=== PATIENT | female | born 1965 | race Caucasian/White ===

== ENCOUNTER 2020-09-12 15:06 | Outpatient (CLI) | payer MEDICARE, SELFPAY ==
[2020-09-12 15:29] LABS: Basophils Absolute Auto 0.05 K/mm3 (0.00-0.10); Basophils Percent Auto 0.6 % (0.0-1.0); Eosinophils Absolute Auto 0.19 K/mm3 (0.02-0.50); Eosinophils Percent Auto 2.4 % (1.0-6.0); Hematocrit 39.2 % (35.0-49.0); Hemoglobin 13.5 g/dL (12.0-15.0); Immature Granulocyte Absolute 0.01 K/mm3 (0.00-0.00); Immature Granulocyte Percent A 0.1 % (0.0-0.0); Lymphocytes Absolute Auto 4.09 K/mm3 (1.10-4.50); Lymphocytes Percent Auto 50.7 % (18.0-42.0); Mean Corpuscular HGB Conc 34.4 g/dL (32.0-36.0); Mean Corpuscular Hemoglobin 31.8 pg (27.0-31.0); Mean Corpuscular Volume 92.5 fL (78.0-102.0); Mean Platelet Volume 9.5 fl (9.2-11.8); Monocytes Absolute Auto 0.66 K/mm3 (0.10-0.90); Monocytes Percent Auto 8.2 % (2.0-11.0); Neutrophils Absolute Auto 3.1 K/mm3 (1.7-7.2); Platelet Count Result 301 K/mm3 (150-420); Red Blood Count 4.24 M/mm3 (4.20-5.40); Red Cell Distribution Width 12.6 % (11.6-14.4); White Blood Count 8.1 K/mm3 (4.8-10.8)
[2020-09-12 17:09] LABS: Alanine Aminotransferase 28 U/L (14-59); Albumin Level 3.9 g/dL (3.4-5.0); Alkaline Phosphatase 95 U/L (46-116); Anion Gap 10 mmol/L (8-16); Aspartate Amino Transferase 16 U/L (15-37); Bilirubin,Total 0.6 mg/dL (0.00-1.00); Blood Urea Nitrogen 12 mg/dL (7-18); Calcium 9.3 mg/dL (8.5-10.1); Carbon Dioxide 26 mmol/L (21-32); Chloride 99 mmol/L (98-108); Cholesterol 248 mg/dL (0-200); Estimated Glomerular Filt Rate > 60; Glucose 77 mg/dL (70-99); HDL Direct 61 mg/dL (40-60); LDL Cholesterol Calculated 164 mg/dL (<130); Osmolality Calculated 278 mOsm/kg (285-295); Potassium 4.3 mmol/L (3.5-5.1); Sodium 135 mmol/L (136-145); Total Protein 7.1 g/dL (6.4-8.2); Triglycerides 117 mg/dL (0-150)
[2020-09-12 17:10] LABS: Thyroid Stimulating Hormone Reflex 0.72 u/IU/mL (0.36-3.74)
== END 2020-09-12 15:07 | disposition home or self-care (01) ==
LOC: CHSLAB 15:09
PROVIDERS: PCP Family Medicine; Visit Provider Family Medicine
DX: E03.9 Hypothyroidism, unspecified (principal); E78.00 Pure hypercholesterolemia, unspecified
CPT/HCPCS: 36415; 80053; 80061; 84443; 85025

== ENCOUNTER 2020-10-20 20:36 | Emergency (ER) | payer MEDICARE, SELFPAY ==
--- NOTE | ~2020-10-20 | XR_ITS ---
EXAMINATION: XR knee RT 2V EXAM DATE: 10/20/2020 21:01 INDICATION: Right knee injury. TECHNIQUE: Frontal and lateral projections of the right knee. There is no prior study for compariso n. FINDINGS: There are no acute right knee fractures or dislocations identified. There is no subcutaneo us gas. There is soft tissue swelling anterior to the patellar tendon. There is no joint effusion. There are no radiopaque foreign bodies. IMPRESSION: 1. XR knee RT 2V exam without acute osseous findings. 2. Soft tissue swelling. Reviewed, dictated and finalized at location G.
[2020-10-20 20:48] VITALS: BP 140/82; PULSE 88; RESP 20; TEMP 36.7; O2SAT 99
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
[2020-10-20] MEDS: cefTRIAXone 1 GM VIAL IM (21:02)
[2020-10-20] MEDS: TETANUS,DIPHTHERIA,AC PERTUSSIS ADULT 0.5 ML (ADACEL) IM (21:02)
[2020-10-20 21:23] VITALS: BP 138/80; PULSE 85; RESP 20; TEMP 36.7; O2SAT 100
== END 2020-10-20 21:27 | disposition home or self-care (01) ==
PROVIDERS: Emergency Provider Emergency Medicine; PCP Family Medicine
DX: L03.115 Cellulitis of right lower limb (principal); S83.91XA Sprain of unspecified site of right knee, initial encounter; W19.XXXA Unspecified fall, initial encounter
CPT/HCPCS: 73140; 73560; 90471; 90715; 96372; 99283; J0696

== ENCOUNTER 2022-05-09 10:24 | Emergency (ER) | payer MEDICARE, SELFPAY ==
[2022-05-09] VITALS (17 sets, daily range): BP systolic 103–152; BP diastolic 78–109; PULSE 87–111; RESP 20; TEMP 36.6–36.9; O2SAT 96–99
--- NOTE | ~2022-05-09 | CT_ITS ---
EXAMINATION: CT brain wo con DATE: 05/09/2022 11:21 INDICATION: Syncope. TECHNIQUE: Computed tomography (CT) of the head was performed without intravenous contrast. The mA wa s adjusted according to patient size. Iterative reconstruction technique was employed. The dose-lengt h product was 605.33 mGy-cm. COMPARISON: None FINDINGS: There is no intracranial hemorrhage, acute infarction, or abnormal intracranial mass lesion . There are scattered areas of low attenuation in the cerebral white matter. The ventricles are constantino l in size the orbits are normal. There is mild mucosal thickening in left maxillary sinus. The mastoi d air cells are normal. . IMPRESSION: 1. Mild nonspecific cerebral white matter disease, which likely represents chronic small vessel ische john disease. Reviewed, dictated and finalized at location A. RANCE VERIFIER IMPRESSION: 1. Mild nonspecific cerebral white matter disease, which likely represents synchronous motor assembler shobha small vessel ischemic disease.
--- NOTE | ~2022-05-09 | XR_ITS ---
EXAMINATION: XR chest 1V portable DATE: 05/09/2022 11:21 INDICATION: Chest pain. Shortness of breath. TECHNIQUE: A single frontal view of the chest was obtained. COMPARISON: None. FINDINGS: The chest demonstrates clear lungs without pneumonia, pleural effusion, or pneumothorax. Th e heart size is normal. IMPRESSION: 1. No acute cardiopulmonary disease. Reviewed, dictated and finalized at location A. HARDENER
--- NOTE | 2022-05-09 10:33 | ECG_ITS ---
Measurements Intervals [place] Rate: 107 P: 56 WA: 131 QRS: 39 QRSD: 87 T: 66 QT: 366 QTc: 489 Interpretive Statements SINUS TACHYCARDIA MODERATE VOLTAGE CRITERIA FOR LVH, CONSIDER NORMAL VARIANT [MEETS CRITERIA IN ONE OF: R(aVL), S(V1), R(V5), R(V5/V6)+S(V1)] NONSPECIFIC ST & T-WAVE ABNORMALITY ABNORMAL ECG Electronically Signed On 05-09-2022 15:09:56 HEDIS REGISTERED NURSE RN by Ganga Metz M.D.
[2022-05-09] MEDS: SODIUM CHLORIDE 0.9% IV 1,000 ML 999 ML IV CONT (10:48)
[2022-05-09 11:07] LABS: Basophils Absolute Auto 0.03 K/mm3 (0.00-0.10); Basophils Percent Auto 0.3 % (0.0-1.0); Eosinophils Absolute Auto 0.21 K/mm3 (0.02-0.50); Eosinophils Percent Auto 2.1 % (1.0-6.0); Hematocrit 40.5 % (35.0-49.0); Immature Granulocyte Absolute 0.02 K/mm3 (0.00-0.00); Immature Granulocyte Percent A 0.2 % (0.0-0.0); Lymphocytes Absolute Auto 4.96 K/mm3 (1.10-4.50); Lymphocytes Percent Auto 48.9 % (18.0-42.0); Mean Corpuscular HGB Conc 34.6 g/dL (32.0-36.0); Mean Corpuscular Hemoglobin 31.9 pg (27.0-31.0); Mean Corpuscular Volume 92.3 fL (78.0-102.0); Mean Platelet Volume 9.2 fl (9.2-11.8); Monocytes Absolute Auto 0.79 K/mm3 (0.10-0.90); Monocytes Percent Auto 7.8 % (2.0-11.0); Neutrophils Absolute Auto 4.1 K/mm3 (1.7-7.2); Neutrophils Percent Auto 40.7 % (50.0-70.0); Platelet Count Result 385 K/mm3 (150-420); Red Blood Count 4.39 M/mm3 (4.20-5.40); Red Cell Distribution Width 12.4 % (11.6-14.4); White Blood Count 10.2 K/mm3 (4.8-10.8)
[2022-05-09 11:24] LABS: Alanine Aminotransferase 23 U/L (14-59); Albumin Level 3.6 g/dL (3.4-5.0); Alkaline Phosphatase 91 U/L (46-116); Anion Gap 14 mmol/L (8-16); Aspartate Amino Transferase 15 U/L (15-37); Bilirubin,Total 0.4 mg/dL (0.00-1.00); Blood Urea Nitrogen 13 mg/dL (7-18); Calcium 8.9 mg/dL (8.5-10.1); Carbon Dioxide 24 mmol/L (21-32); Chloride 103 mmol/L (98-108); Estimated Glomerular Filt Rate > 60; Glucose 105 mg/dL (70-99); Osmolality Calculated 292 mOsm/kg (285-295); Potassium 3.6 mmol/L (3.5-5.1); Sodium 141 mmol/L (136-145); Total Protein 7.5 g/dL (6.4-8.2); Troponin I 29.1 ng/L (0.00-60.4)
[2022-05-09 11:26] LABS: Ethanol < 3 mg/dL (0-6)
[2022-05-09 11:27] LABS: Lactic Acid Reflex 1.9 mmol/L (0.4-2.0)
[2022-05-09 11:33] LABS: Add Urine Microscopic? YES; Appearance Urine Clear (Clear); Bilirubin Urine Negative (Negative); Blood Urine Negative (Negative); Color Urine Yellow (Yellow); Glucose Urine UA Negative (Negative); Ketones Urine Trace (Negative); Leukocyte Esterase Ur Negative (Negative); Nitrate Urine Negative (Negative); Protein Urine Trace (Negative); Specific Grav Ur >= 1.030 (1.010-1.020); Urobilinogen Urine 0.2 mg/dL (0.2-1.0); pH Urine 5.5 (5.0-8.0)
[2022-05-09 11:39] LABS: Amphetamine Screen Urine Negative (Negative); Barbiturate Screen Urine Negative (Negative); Benzodiazepines Screen Urine Negative (Negative); Cannabinoid Screen Urine Positive (Negative); Cocaine Screen Urine Negative (Negative); Methadone Screen Urine Negative (Negative); Opiate Screen Urine Negative (Negative); Phencyclidine Screen Urine Negative (Negative)
[2022-05-09 11:41] LABS: Bacteria Urine 2+ /hpf; Mucus Urine Moderate /lpf; RBC Urine None seen /hpf (0-2); Squamous Epithelial Cell Urine Many /hpf (Few); WBC Urine None seen /hpf (0-3)
[2022-05-09 11:43] LABS: Influenza A QL RT-PCR Negative (Negative); Influenza B QL RT-PCR Negative (Negative); SARS-CoV-2 RNA PCR Positive (Negative)
[2022-05-09 11:46] LABS: RSV RNA, RT-PCR Negative (Negative)
[2022-05-09 11:52] LABS: Thyroid Stimulating Hormone 2.41 uIU/mL (0.36-3.74)
[2022-05-09 12:48] LABS: Base Excess ABG -2.2 mmol/L (0-2); HCO3 ABG 20.9 mmol/L (23-29); Oxygen Content ABG 19.7 %vol (16.0-22.0); Oxygen Saturation ABG 97.7 % (95-97); Oxyhemoglobin 96.8 % (94-100); PCO2 ABG 31.5 mmHg (35-45); PO2 ABG 99.9 mmHg (80-90); Total Hemoglobin 14.4 g/dL (12.0-18.0); pH ABG 7.44 (7.35-7.45)
[2022-05-09 12:49] LABS: Device ROOM AIR; Modified Allen's Test Pass; Site Drawn RIGHT RADIAL
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
== END 2022-05-09 13:50 | disposition home or self-care (01) ==
PROVIDERS: Emergency Provider Emergency Medicine; PCP Family Medicine
DX: U07.1 COVID-19 (principal); R55 Syncope and collapse; E78.00 Pure hypercholesterolemia, unspecified; E07.9 Disorder of thyroid, unspecified; F17.200 Nicotine dependence, unspecified, uncomplicated
CPT/HCPCS: 36415; 36600; 70450; 71045; 80053; 80307; 81001; 82805; 83605; 84443; 84484; 85025; 87637; 93005; 96360; 96361; 99284; J7030

== ENCOUNTER 2024-10-06 12:35 | Outpatient (CLI) | payer MEDICARE, SELFPAY ==
--- NOTE | ~2024-10-06 | CT_ITS ---
EXAMINATION: CT sinus wo con DATE: 10/06/2024 13:06 INDICATION: Chronic sinusitis TECHNIQUE: Computed tomography (CT) of the paranasal sinuses was performed without intravenous contra st. The dose-length product was 186.71 mGy-cm. Automated exposure control and iterative reconstructio n technique were employed. COMPARISON: CT dated 05/09/2022 FINDINGS: Paranasal sinuses and mastoids are pneumatized. No significant mucosal thickening. No air-f luid levels. Rightward nasal septal deviation. Ostiomeatal units are patent. There is a right-sided c oncha bullosa. Mastoids are pneumatized. IMPRESSION: 1. No significant sinus disease. Reviewed, dictated and finalized at location A.
--- OUTSIDE RECORDS SUMMARY | 2024-10-06 13:24 | XMS_ITS | Referral Summary ---
Author Organization [facility] Address [address] [place] [address] Care Team Providers Care Medical Director Occupational Health Name Role Phone Denzel Ventura MD Unavailable + Shant Fletcher MD Primary Care Provider [phone] Allergies Active Allergy Reactions Criticality Noted Date Comments Other Stomach upset Low 09/30/2021 Severe vomiting and diarrhea Medications FLUoxetine (PROzac) 40 mg capsule Take 2 capsules (80 mg total) by mouth daily Active levothyroxine (SYNTHROID) 75 mcg tablet Take 1 tablet (75 mcg total) by mouth inspector plumbing before breakfast Active LORazepam (ATIVAN) 0.5 mg tablet Take 1 tablet (0.5 mg total) by mouth 2 (two) times a day Active verapamil ER (VERELAN) 360 mg 24 hr capsule Take 1 capsule (360 mg total) by mouth daily Active simvastatin (ZOCOR) 20 mg tablet Take 1 tablet (20 mg total) by mouth nightly Active omeprazole (PriLOSEC) 20 mg capsule Take 1 capsule (20 mg total) by mouth daily Active oxyCODONE (ROXICODONE) 5 mg immediate release tabletIndicatio ns:Pain Take 1 tablet (5 mg total) by mouth every 4 (four) hours as needed for pain 15 tablet 0 Active cetirizine (ZyrTEC) 10 mg tablet Take 1 tablet (10 mg total) by mouth daily Active rosuvastatin (CRESTOR) 40 mg tablet Take 1 tablet (40 mg total) by mouth daily 4 Active meloxicam (MOBIC) 15 mg tabletIndicatio ns:Left hand pain,Left wrist injury, initial encounter Take 1 tablet (15 mg total) by mouth daily Take 1 daily with food 30 tablet 4 Active Active Problems Problem Noted Date Diagnosed Date Calculus of gallbladder with cholecystitis 07/14 Choledocholithiasis 06/29/2019 Overview (06/29/2019): Added automatically from request for surgery [id number] Acute cholecystitis due to biliary calculus 06/08 Overview (06/23/2019): Added automatically from request for surgery [id number] Severe malnutrition 06/02/2019 SANDY on CPAP 05/30/2019 Assessment & Plan (05/30/2019 8:07 PM BUSINESS ANALYST): -Continue CPAP Hypothyroidism 05/30/2019 Assessment & Plan (05/30/2019 8:07 PM BUSINESS ANALYST): -Continue Synthroid Resolved Problems Problem Noted Date Diagnosed Date Resolved Date Choledocholithiasis 06/03/2019 06/03/20 19 Epigastric pain 05/30/2019 06/03/2019 Assessment & Plan (05/30/2019 8:13 PM BUSINESS ANALYST): -Epigastric/chest pain and N/V likely related to gallstones and suspected choledocholithiasis although symptoms are not classic of biliary colic. Symptoms unlikely cardiac in etiology. -Lipase normal at OSH -Plan as noted above Elevated LFTs 05/30/2019 06/03/2019 Assessment & Plan (05/30/2019 8:12 PM BUSINESS ANALYST): -Pt presenting to OSH with N/V, abdominal/chest pain, and elevated AST, ALT, and bilirubin with RUQ US showing presence of gallstones and CBD dilation to 11mm. Suspect CBD dilation due to choledocholithiasis. -Trend LFTs -MRCP given that bilirubin is only mildly elevated, may need ERCP if bilirubin uptrending or pending MRCP results -Empiric cipro/Flagyl as cannot r/o cholangitis at this time -GI-biliary c/s -HPB or other surgery service c/s for CCK PTSD (post-traumatic stress disorder) 05/30/2019 06/03/2019 Assessment & Plan (05/30/2019 8:06 PM BUSINESS ANALYST): -Continue home medications of Prozac 80 mg, Ativan 0.5 BID Rapid or irregular heartbeat 05/30/2019 06/03/2019 Assessment & Plan (05/30/2019 8:06 PM BUSINESS ANALYST): -Pt reports hx of irregular heart beat since age 16. Further details unknown. -Continue home verapamil Social History Tobacco Use Types Packs/Day Years Used Date Smoking Tobacco: Every Day Cigarettes 0.1 15 Smokeless Tobacco: Never Alcohol Use Standard Drinks/Week Comments Not Currently 0 (1 standard drink = 0.6 oz pur e alcohol) Comments No Sex and Gender Information Value Date Recorded Sex Assigned at Not on file Legal Sex Female 8:01 AM BUSINESS ANALYST Gender Identity Not on file Sexual Orientation Not on file Last Filed Vital Signs Vital Sign Reading Time Taken Comments Blood Pressure 136/64 07/14/2019 3:40 PM BUSINESS ANALYST Pulse 76 07/14/2019 3:40 PM BUSINESS ANALYST Temperature 36.1 C (97 F) 07/14/2019 3:21 PM BUSINESS ANALYST Respiratory Rate 28 07/14/2019 3:40 PM BUSINESS ANALYST Oxygen Saturation 95% 07/14/2019 3:40 PM BUSINESS ANALYST Inhaled Oxygen Concentration - - Weight 98.4 kg (217 lb) 07/14/2019 2:10 PM BUSINESS ANALYST Height 165.1 cm (5' 5 ) 07/14/2019 2:10 PM BUSINESS ANALYST Body Mass Index 36.11 07/14/2019 2:10 PM BUSINESS ANALYST Plan of Treatment Not on file Medical Devices Implanted Type Area Central Control Room Operator Device Identifier Shelf Expiration Date Model / Serial / Lot [email or web address] 6574 Mclaughlin Flexi-Stent 7fr 7cm Small Pigtail Flexible .035in Stent - [id number] Implanted:Qty: 1 on 05/31/2019 by Denzel Ventura MD at [facility] Bile Duct [email or web address] 01/06/2024 [id number] / / [id number] Insurance [employer] MEDICARE HMO/PPO [employer] MEDICARE HMO/PPO [employer] HE[employer]IANCE HE[employer] MEDICARE HMO/PPO Advance Directives For more information, please contact: [phone] * Full Code (Latest Code Status on File) Date Activated Date Inactivated Comments 07/14/2019 2:04 PM 07/18/2019 12:33 PM * Full Code Date Activated Date Inactivated Comments 06/23/2019 6:46 PM 06/25/2019 2:54 PM * Full Code Date Activated Date Inactivated Comments 05/31/2019 9:44 AM 06/03/2019 7:07 PM * Full Code Date Activated Date Inactivated Comments 05/30/2019 7:52 PM 05/31/2019 9:44 AM Care Teams Medical Director Occupational Health Relationship Specialty Start Date End Date Shant Fletcher MD [address] [place] [id number] PCP - General Family Medicine 01/13/24 Denzel Ventura MD Referring Physician Gastroenterology 06/28/19
--- OUTSIDE RECORDS SUMMARY | 2024-10-06 13:24 | XMS_ITS | Clinical Summary ---
Author Organization [facility] Address [address] [place] [address] Care Team Providers Care Nail Machine Operator Name Role Phone Denzel Ventura MD Unavailable + Shant Fletcher MD Primary Care Provider [phone] Allergies Active Allergy Reactions Criticality Noted Date Comments Other Stomach upset Low 09/30/2021 Severe vomiting and diarrhea Medications FLUoxetine (PROzac) 40 mg capsule Take 2 capsules (80 mg total) by mouth daily Active levothyroxine (SYNTHROID) 75 mcg tablet Take 1 tablet (75 mcg total) by mouth carrier loader before breakfast Active LORazepam (ATIVAN) 0.5 mg [...] (06/29/2019): Added automatically from request for surgery [id number] Acute cholecystitis due to biliary calculus 06/08 Overview (06/23/2019): Added automatically from request for surgery [id number] Severe malnutrition 06/02/2019 SANDY on CPAP 05/30/2019 Assessment & Plan (05/30/2019 8:07 PM OIL SPRAYING MACHINE OPERATOR): -Continue CPAP Hypothyroidism 05/30/2019 Assessment & Plan (05/30/2019 8:07 PM OIL SPRAYING MACHINE OPERATOR): -Continue Synthroid Resolved Problems Problem Noted Date Diagnosed Date Resolved Date Choledocholithiasis 06/03/2019 06/03/20 19 Epigastric pain 05/30/2019 06/03/2019 Assessment & Plan (05/30/2019 8:13 PM OIL SPRAYING MACHINE OPERATOR): -Epigastric/chest pain and N/V likely related to gallstones and suspected choledocholithiasis although symptoms are not classic of biliary colic. Symptoms unlikely cardiac in etiology. -Lipase normal at OSH -Plan as noted above Elevated LFTs 05/30/2019 06/03/2019 Assessment & Plan (05/30/2019 8:12 PM OIL SPRAYING MACHINE OPERATOR): -Pt presenting to OSH with N/V, abdominal/chest [...] 06/03/2019 Assessment & Plan (05/30/2019 8:06 PM OIL SPRAYING MACHINE OPERATOR): -Continue home medications of Prozac 80 mg, Ativan 0.5 BID Rapid or irregular heartbeat 05/30/2019 06/03/2019 Assessment & Plan (05/30/2019 8:06 PM OIL SPRAYING MACHINE OPERATOR): -Pt reports hx of irregular heart beat since age 16. Further details unknown. -Continue home verapamil Surgical History Surgery Date Site/Laterality Comments HYSTERECTOMY CARPAL TUNNEL RELEASE Right ERCP W/ PLASTIC STENT PLACEMENT 06/02/2019 bile duct stone LAPAROSCOPIC CHOLECYSTECTOMY 06/24/2019 Medical History Medical History Date Comments Irregular heart beat Thyroid disease SANDY on CPAP PONV (postoperative nausea and vomiting) GERD (gastroesophageal reflux disease) Hypothyroidism PTSD (post-traumatic stress disorder) Smoker Hyperlipidemia Family History Medical History Relation Name Comments Breast cancer Mother Relation Name Status Comments Mother Social History Tobacco Use Types Packs/Day Years Used Date Smoking Tobacco: Every Day Cigarettes 0.1 15 Smokeless Tobacco: Never Alcohol Use Standard Drinks/Week Comments Not Currently 0 (1 standard drink = 0.6 oz pur e alcohol) Comments No Sex and Gender Information Value Date Recorded Sex Assigned at Not on file Legal Sex Female 8:01 AM OIL SPRAYING MACHINE OPERATOR Gender Identity Not on file Sexual Orientation Not on file Obstetrics History Last Filed Vital Signs Vital Sign Reading Time Taken Comments Blood Pressure 136/64 07/14/2019 3:40 PM OIL SPRAYING MACHINE OPERATOR Pulse 76 07/14/2019 3:40 PM OIL SPRAYING MACHINE OPERATOR Temperature 36.1 C (97 F) 07/14/2019 3:21 PM OIL SPRAYING MACHINE OPERATOR Respiratory Rate 28 07/14/2019 3:40 PM OIL SPRAYING MACHINE OPERATOR Oxygen Saturation 95% 07/14/2019 3:40 PM OIL SPRAYING MACHINE OPERATOR Inhaled Oxygen Concentration - - Weight 98.4 kg (217 lb) 07/14/2019 2:10 PM OIL SPRAYING MACHINE OPERATOR Height 165.1 cm (5' 5 ) 07/14/2019 2:10 PM OIL SPRAYING MACHINE OPERATOR Body Mass Index 36.11 07/14/2019 2:10 PM OIL SPRAYING MACHINE OPERATOR Plan of Treatment Health Maintenance Due Date Last Done Comments Breast Cancer Screening-Mammogram 1965 Colon Cancer Screening-Colonoscopy 1965 Depression Screening 1965 Hepatitis C Screening 1965 Hepatitis B Screening 1983 Regular Well Visit/Exam 18-64 1983 Pneumococcal vaccine <65 (1 of 2 - PCV) 1984 Zoster Vaccine (1 of 2) 2015 Influenza Vaccine (#1) 2024 9, 05/20/2018, 07/02/2016, Additional history exists DTaP/Tdap/Td Vaccine (3 - Td or Tdap) 10/20/2030 10/20/2020, 05/06/2016 Medical Devices Implanted Type Area Mechanical Technician Device Identifier Shelf Expiration Date Model / Serial / Lot [employer] 6574 Mclaughlin Flexi-Stent 7fr 7cm Small Pigtail Flexible .035in Stent - [id number] Implanted:Qty: 1 on 05/31/2019 by Denzel Ventura MD at [facility] Bile Duct [employer] 01/06/2024 [id number] / / [id number] Insurance [facility] MEDICARE HMO/PPO [facility] MEDICARE HMO/PPO [employer] HE[employer] MEDICARE HMO/PPO Advance Directives For more information, please contact: [phone] * Full Code (Latest Code Status on File) Date Activated Date Inactivated Comments 07/14/2019 2:04 PM 07/18/2019 12:33 PM * Full Code Date Activated Date Inactivated Comments 06/23/2019 6:46 PM 06/25/2019 2:54 PM * Full Code Date Activated Date Inactivated Comments 05/31/2019 9:44 AM 06/03/2019 7:07 PM * Full Code Date Activated Date Inactivated Comments 05/30/2019 7:52 PM 05/31/2019 9:44 AM Care Teams Nail Machine Operator Relationship Specialty Start Date End Date Shant Fletcher MD [address] [place] [address] PCP - General Family Medicine 01/13/24 Denzel Ventura MD Referring Physician Gastroenterology 06/28/19
== END 2024-10-06 12:36 | disposition home or self-care (01) ==
PROVIDERS: PCP Family Medicine; Visit Provider Family Medicine
DX: J32.9 Chronic sinusitis, unspecified (principal)
CPT/HCPCS: 70486